=== PATIENT | female | born 1955 | race Caucasian/White ===

== ENCOUNTER 2024-01-08 08:45 | Outpatient (OUT) | payer BC, SELFPAY ==
--- NOTE | 2024-01-08 09:04 | MM_ITS ---
Patient Name: JOSTIN PEREA MR#: [id number] : 1955 Exam Date: 01/08/2024 Ordering Doctor: DR Breonna Steiner M.D. RADIOLOGY REPORT PROCEDURE: MM TOMOSYNTHESIS SCREENING BI COMPARISON: MG MAMM SCREEN 3D STACIA CAD, 06/15/2021. MG MAMM SCREEN 3D STACIA CAD, 09/13/2022. INDICATIONS: Screening Calculator Name NCI Breast Cancer Risk Assessment Tool 5 Year Breast Cancer Risk 2.10% Lifetime Breast Cancer Risk 6.90% Personal Breast Cancer No Personal Ovarian Cancer No Treatments None Family Cancers Father with bladder cancer at age 48. LOCATION: [facility] BREAST COMPOSITION: There are scattered areas of fibroglandular density. FINDINGS: DIAGNOSTIC CATEGORY 2--BENIGN FINDING. NO CHANGE FROM COMPARISON. Scattered benign-appearing calcifications are present. Scattered benign-appearing lymph nodes are present. RIGHT BREAST: No significant suspicious finding. LEFT BREAST: No significant suspicious finding. RECOMMENDATIONS: ROUTINE MAMMOGRAM AND CLINICAL EVALUATION IN 12 MONTHS. PLEASE NOTE: A NORMAL MAMMOGRAM DOES NOT EXCLUDE THE POSSIBILITY OF BREAST CANCER. A CLINICALLY SUSPICIOUS PALPABLE LUMP SHOULD BE BIOPSIED. Dictated by: Kartik Pace MD on 01/08/2024 at 13:05 Approved by: Kartik Paec MD on 01/08/2024 at 13:06
[2024-01-08 09:07] LABS: Basophils Percent Auto 0.6 % (0.2-2.0); Eosinophils Absolute Auto 0.3 10^3/uL (0.0-0.7); Eosinophils Percent Auto 4.9 % (0.9-7.0); Hematocrit 42.9 % (36.0-48.0); Hemoglobin 13.7 g/dL (12.0-16.0); Immature Granulocytes Abs Auto 0.01 10^3/uL (0.00-0.03); Immature Granulocytes Pct Auto 0.1 % (0.0-0.5); Lymphocytes Absolute Auto 1.8 10^3/uL (1.2-3.8); Lymphocytes Percent Auto 26.6 % (20.5-60.0); Mean Corpuscular HGB Conc 31.9 g/dL (29.9-35.2); Mean Corpuscular Hemoglobin 29.2 pg (26.7-34.0); Mean Corpuscular Volume 91.5 fL (81.0-99.0); Mean Platelet Volume 9.9 fL (9.5-13.5); Monocytes Absolute Auto 0.6 10^3/uL (0.3-0.8); Monocytes Percent Auto 8.7 % (1.7-12.0); Neutrophils Percent Auto 59.1 % (43.0-75.0); Platelet Count 275 10^3/uL (150-450); Red Blood Count 4.69 10^6/uL (4.20-5.40); Red Cell Distribution Width 13.3 % (11.0-15.0); White Blood Count 6.8 10^3/uL (4.0-11.0)
[2024-01-08 09:26] LABS: Alanine Aminotransferase 34 U/L (14-59); Albumin Globulin Ratio 0.9; Albumin Level 3.3 g/dL (3.4-5.0); Alkaline Phosphatase 65 U/L (46-116); Anion Gap 6.3; Aspartate Amino Transferase 22 U/L (15-37); BUN Creatinine Ratio 23.5; Bilirubin Total 0.5 mg/dL (0.2-1.0); Calcium 9.2 mg/dL (8.5-10.1); Carbon Dioxide 33.6 mmol/L (21.0-32.0); Chloride 103 mmol/L (98-107); Chol HDL Ratio 3.3; Cholesterol 183 mg/dL (<=200); Estimated GFR (African America >60 (>=60); Estimated GFR (Non-African Ame >60 (>=60); Globulin 3.7 g/dL; Glucose 102 mg/dL (74-106); HDL Cholesterol 55 mg/dL (40-60); LDL Cholesterol Calculated 116.8 mg/dL; Potassium 3.9 mmol/L (3.5-5.1); Sodium 139 mmol/L (136-145); Triglycerides 56 mg/dL (<=150); VLDL CHOLESTEROL 11.2 mg/dL
== END 2024-01-08 08:46 | disposition home or self-care (01) ==
LOC: MAMMO 08:46
PROVIDERS: PCP Family Medicine; Visit Provider Family Medicine
DX: Z00.00 Encounter for general adult medical examination without abnormal findings (principal); Z12.31 Encounter for screening mammogram for malignant neoplasm of breast; I10 Essential (primary) hypertension; Z80.52 Family history of malignant neoplasm of bladder
CPT/HCPCS: 36415; 77063; 77067; 80053; 80061; 85025

== ENCOUNTER 2025-01-21 08:42 | Outpatient (OUT) | payer BC, SELFPAY ==
--- OUTSIDE RECORDS SUMMARY | 2025-01-21 08:48 | XMS_ITS | CCD ---
Author Organization [facility] CliniSyms Care Team Providers Care Wood Shingle Roofer Name Role Phone DR BREONNA STEINER Admitting Unavailable OBDULIA, DR BREONNA Calixto Attending Unavailable OBDULIA, DR BREONNA Calixto Primary Care Unavailable WEST, DR LOLLY Crabtree Consulting Unavailable OBDULIA, DR BREONNA Calixto Consulting Unavailable OBDULIA, DR BREONNA Calixto Admitting Unavailable OBDULIA, DR BREONNA Calixto Attending Unavailable OBDULIA, DR BREONNA Calixto Primary Care Unavailable OBDULIA, DR BREONNA Calixto Consulting Unavailable Breonna Steiner Unavailable Allergies Allergy Classification Reported Allergen(s) Allergy Type Date of Onset Reaction(s) Facility (3 sources) Nitric Oxide Drug Allergy Unknown [facility] Other (2 sources) patient allergy list reviewed by nurse or physicia Propensity to adverse reactions 9 Comment:Done [facility] Other (2 sources) Allergies Reconciled Propensity to adverse reactions Unknown [facility] Other (2 sources) JALAPENOS Propensity to adverse reactions 6 Unknown [facility] Other Medications Current Medications Medication Drug Class(es) Dates Sig (Normalized) Sig (Original) [id number] 200 actuat albuterol 0.09 mg/actuat metered dose inhaler (2 sources) beta2-Adrenergic Agonist Start: 12-10-2024 take 2 puff(s) by inhalation every four hours as needed Albuterol Sulfate 90 mcg/actuation HFA aerosol inhaler Active 2 PUFF INHALATION Every 4 hours December 10, 2024 12:00am [facility] puff Inhalation every 4 hrs prn; Note: Source Status: Start; Refills: 1; Qty: 1 Each; Provider: Obdulia Calixto Start: 08-28-2023 take 2 puff(s) by in halation every four hours as needed Albuterol Sulfate HFA 108 (90 Base) MCG/ACT 2 puff Inhalation every 4 hrs prn Aug, Active amoxicillin 875 mg / clavulanate 125 mg oral tablet (1 source) Penicillin-class Antibacterial Start: 08-28-2023 take 1 tablet by mouth every twelve hours Amoxicillin-Pot Clavulanate 875-125 MG 1 tablet Orally every 12 hrs for 10 day(s) Aug, Active breath-actuated 120 actuat beclomethasone dipropionate 0.04 mg/actuat metered dose inhaler (2 sources) Corticosteroid Start: 09-25-2024 take 40 ug by inhalation twice daily Beclomethasone Dipropionate (Qvar Redihaler) 40 mcg/actuation HFA aerosol breath activated Active 1 INH INHALATION Twice daily 31.8 September 25, 2024 1:00am take 1 puff(s) by inhalation twi ce daily Qvar RediHaler 40 MCG/ACT 1 puff Inhalation Twice a day for 90 days Active fexofenadine hydrochloride 180 mg oral tablet (1 source) Histamine-1 Receptor Antagonist Start: 12-11-2024 take 1 tablet by mouth once daily Fexofenadine (Ny Allergy) 180 mg tablet Active 180 MG PO Daily December 11, 2024 12:00am hydroCHLOROthiazide 12.5 mg / lisinopril 20 mg oral tablet (6 sources) Thiazide Diuretic, Angiotensin Converting Enzyme Inhibitor Start: 12-16-2023 End: 05-18-2024 take 1 tablet by mouth once daily Lisinopril-Hydroc hlorothiazide 20-12.5 mg tablet Active 0 .ROUTE .COMPLEX May 18, 2024 9:05am TAKE 1 TABLET BY MOUTH EVERY DAY Start: 12-16-2023 End: 12-16-2023 take 1 tablet by mouth once daily Lisinopril-Hydrochlorothiazide 20-12.5 m g tablet Discontinued 1 TAB PO Daily December 16, 2023 12:00am December 16, 2023 3:02pm take 1 tablet by jayden th once daily Lisinopril-hydroCHLOROthiazide 20-12.5 M G TAKE 1 TABLET BY MOUTH EVERY DAY for 90 Active take 1 tablet by jayden th once daily Lisinopril-hydroCHLOROthiazide 20-12.5 M G TAKE 1 TABLET BY MOUTH EVERY DAY for 90 Active simvastatin 40 mg oral tablet (5 sources) HMG-CoA Reductase Inhibitor Start: 05-18-2024 take 1 tablet by mouth once daily Simvastatin 40 mg tablet Active 0 .ROUTE .COMPLEX May 18, 2024 9:05am TAKE 1 TABLET BY MOUTH EVERY DAY Start: 05-18-2024 End: 05-18-2024 take 1 tablet by mouth once daily Simvastatin 40 mg tablet Discontinued 40 MG PO Daily May 18, 2024 12:00am May 18, 2024 9:05am take 1 tablet by jayden th once daily Simvastatin 40 MG TAKE 1 TABLET BY MOUTH EVERY DAY for 90 Active Completed/Discontinued Medications Medication Drug Class(es) Dates Sig (Normalized) Sig (Original) cetirizine hydrochloride 10 mg oral tablet (8 sources) Histamine-1 Receptor Antagonist Start: 12-10-2024 End: 12-11-2024 take 1 tablet by mouth once daily Cetirizine (Zyrtec) 10 mg tablet Discontinued 10 MG PO Daily December 10, 2024 12:00am December 11, 2024 2:35pm [facility] tablet Orally Once a day; Note: Source Status: Takinggeneric please; Refills: 3; Provider: Obdulia Calixto Start: 04-03-2024 End: 04-09-2024 take 1 tablet by mouth once daily Cetirizine 10 mg tablet Discontinued 10 MG PO Daily April 06, 2024 8:41am April 09, 2024 9:45am Start: 02-22-2023 take 1 tablet by jayden th every twenty-four hours ZyrTEC Allergy 10 MG 1 tablet Orally Once a day for 30 days generic please Feb, Active loratadine 10 mg oral tablet (3 sources) Start: 04-10-2024 End: 12-11-2024 take 1 tablet by mouth once daily Loratadine 10 mg tablet Discontinued 0 .ROUTE .COMPLEX April 10, 2024 10:08pm December 11, 2024 2:35pm TAKE 1 TABLET BY MOUTH EVERY DAY Start: 04-09-2024 End: 04-10-2024 take 1 tablet by mouth once daily Loratadine 10 mg tablet Discontinued 10 MG PO Daily April 09, 2024 9:45am April 10, 2024 10:08pm Problems Active Problems Problem Classification Problem Date Documented Date Episodic/Chronic Asthma (4 sources) Uncomplicated asthma; Translations: [Unspecified asthma, uncomplicated] Onset: 09-01-2015 Chronic Disorders of lipid metabolism (10 sources) Hyperlipidemia; Translations: [Hyperlipidemia, unspecified] 12-11-2024 Chronic Essential hypertension (6 sources) Essential hypertension; Translations: [Essential (primary) hypertension] Onset: 09-01-2015 12-31-2023 Chronic Immunizations and screening for infectious disease (2 sources) Vaccination given; Translations: [Encounter for immunization] Episodic Miscellaneous mental health disorders (2 sources) Insomnia disorder related to another mental disorder; Translations: [Insomnia due to other mental disorder] Onset: 12-07-2016 Chronic Mood disorders (7 sources) Major depressive disorder; Translations: [Major depressive disorder, single episode, unspecified] Onset: 12-07-2016 Chronic Other lower respiratory disease (1 source) Snoring Episodic Other nutritional; endocrine; and metabolic disorders (2 sources) Obese class I; Translations: [Body mass index 34.0-34.9, adult] Onset: 12-07-2016 Chronic Other nutritional; endocrine; and metabolic disorders (2 sources) Simple obesity ; Translations: [Other obesity due to excess calories] Onset: 12-07-2016 Chronic Other screening for suspected conditions (not mental disorders or infectious disease) (6 sources) Encounter for screening mammogram for malignant neoplasm of breast; Translations: [Patient encounter status] Onset: 09-13-2022 Episodic Other upper respiratory disease (3 sources) Allergic rhinitis due to pollen; Translations: [Allergic rhinitis due to pollen] Chronic Other upper respiratory disease (1 source) Allergic rhinitis due to pollen Chronic Other upper respiratory disease (2 sources) Allergic rhinitis; Translations: [Allergic rhinitis, unspecified] Onset: 09-01-2015 Chronic Other upper respiratory infections (1 source) Acute recurrent maxillary sinusitis Episodic Residual codes; unclassified (5 sources) Insomnia; Translations: [Insomnia, unspecified] Episodic Residual codes; unclassified (2 sources) Postmenopausal state; Translations: [Asymptomatic menopausal state] Episodic Past or Other Problems Problem Classification Problem Date Documented Da te Episodic/Chronic Acute bronchitis (2 sources) Acute bronchitis; Translations: [Acute bronchitis] Onset: 08-28-2017 Episodic Conditions associated with dizziness or vertigo (2 sources) Benign paroxysmal positional vertigo; Translations: [Benign paroxysmal positional vertigo] Onset: 01-16-2019 Episodic Other connective tissue disease (2 sources) Plantar fascial fibromatosis; Translations: [Plantar fascial fibromatosis] Onset: 12-07-2016 Episodic Residual codes; unclassified (1 source) Family history of malignant neoplasm of bladder; Translations: [FAM HX MALIGNANT NEOPLASM BLADDER] Onset: 09-19-2022 Episodic Superficial injury; contusion (2 sources) Contusion of lower leg; Translations: [Contusion of left lower leg, initial encounter] Onset: 12-07-2016 Episodic Results Test Name Value Interpretation Reference Range Facil ity CBC AUTO DIFFon 12-24-2022 BASO # 0.1 103/ul Normal 0.0-0.1 [facility] Comment on above: Performed By: #### C BC #### [facility] [place] [facility] [address] [place] [address] Dr. Angela Ford Basophils/100 WBC (Bld) 0.6 % Normal 0.2-2.0 [facility] Comment on above: Performed By: #### C BC #### [facility] [place] [facility] [address] [address] [address] Angela Ford EO # 0.2 103/ul Normal 0.0-0.7 [facility] Comment on above: Performed By: #### C BC #### [facility] [place] [facility] [address] [place] [address] Dr. Angela Ford Eosinophils/100 WBC (Bld) 2.9 % Normal 0.9-7.0 [facility] Comment on above: Performed By: #### C BC #### [facility] [place] [facility] [address] [address] [address] Angela Ford Erythrocyte distribution width (RBC) [Ratio] 12.7 % Normal 11.0-15.0 [facility] [place] [facility] Comment on above: Performed By: #### C BC #### [facility] [place] [facility] [address] [place] [address] Dr. Angela Ford Hematocrit (Bld) [Volume fraction] 41.0 % Normal 36.0-48.0 [facility] Comment on above: Performed By: #### C BC #### [facility] [place] [facility] [address] [place] [address] Dr. Angela Ford Hemoglobin (Bld) [Mass/Vol] 13.1 g/dL Normal 12.0-16.0 [facility] Comment on above: Performed By: #### C BC #### [facility] [place] [facility] [address] [place] [address] Dr. Angela Ford IG # 0.02 10e3/ul Normal 0.00-0.03 [facility] Comment on above: Performed By: #### C BC #### [facility] [place] [facility] [address] [place] [address] Dr. Angela Ford IG % 0.2 % Normal 0.0-0.5 [facility] Comment on above: Performed By: #### C BC #### [facility] [place] [facility] [address] [place] [address] Dr. Angela Ford LYMPH # 2.1 103/ul Normal 1.2-3.8 [facility] Comment on above: Performed By: #### C BC #### [facility] [place] [facility] [address] [place] [address] Dr. Angela Ford Lymphocytes/100 WBC (Bld) 25.3 % Normal 20.5-60.0 [facility] Comment on above: Performed By: #### C BC #### [facility] [place] [facility] [address] [place] [address] Dr. Angela Ford MANUAL DIFF REQ NO Normal [facility] Comment on above: Performed By: #### C BC #### [facility] [place] [facility] [address] [place] [address] Dr. Angela Ford MCH (RBC) [Entitic mass] 29.1 pg Normal 26.7-34.0 [facility] Comment on above: Performed By: #### C BC #### [facility] [place] [facility] [address] [place] [address] Dr. Angela Ford MCHC (RBC) [Mass/Vol] 32.0 g/dL Normal 29.9-35.2 [facility] Comment on above: Performed By: #### C BC #### [facility] [place] [facility] [address] [place] [address] Dr. Angela Ford MCV (RBC) [Entitic vol] 91.1 fL Normal 81.0-99.0 [facility] Comment on above: Performed By: #### C BC #### [facility] [place] [facility] [address] [place] [address] Dr. Angela Ford MONO # 0.7 103/ul Normal 0.3-0.8 [facility] Comment on above: Performed By: #### C BC #### [facility] [place] [facility] [address] [place] [address] Dr. Angela Ford Monocytes/100 WBC (Bld) 8.0 % Normal 1.7-12.0 [facility] Comment on above: Performed By: #### C BC #### [facility] [place] [facility] [address] [place] [address] Dr. Angela Ford NEUT # 5.2 103/ul Normal 1.4-6.5 [facility] Comment on above: Performed By: #### C BC #### [facility] [place] [facility] [address] [place] [address] Dr. Angela Ford Neutrophils/100 WBC (Bld) 63.0 % Normal 43.0-75.0 [facility] Comment on above: Performed By: #### C BC #### [facility] [place] [facility] [address] [place] [address] Dr. Angela Ford Platelet mean volume (Bld) [Entitic vol] 9.6 fL Normal 9.5-13.5 [facility] Comment on above: Performed By: #### C BC #### [facility] [place] [facility] [address] [place] [address] Dr. Angela Ford PLT 282 103/ul Normal 150-450 [facility] [place] [facility] Comment on above: Performed By: #### C BC #### [facility] [place] [facility] [address] [place] [address] Dr. Angela Ford RBC 4.50 106/ul Normal 4.20-5.40 [facility] [place] [facility] Comment on above: Performed By: #### C BC #### [facility] [place] [facility] [address] [place] [address] Dr. Angela Ford WBC 8.3 103/ul Normal 4.0-11.0 [facility] Comment on above: Performed By: #### C BC #### [facility] [place] [facility] [address] [place] [address] Dr. Angela Ford GLYCOHEMOGLOBIN A1Con 2022 ADA RECOMMENDATION SEE BELOW Normal [facility] Comment on above: Result Comment: ADA RECOMMENDED LIMIT 4.0 - 6.0 ADA THERAPEUTIC TARGET < 7.0 ACTION SUGGESTED > 7.0 Performed By: #### A 1C #### [facility] [place] [facility] [address] [place] [address] Dr. Angela Ford Glucose [Mass/Vol] 114 mg/dL Normal [facility] Comment on above: Performed By: #### A 1C #### [facility] [place] [facility] [address] [place] [address] Dr. Angela Ford HbA1c (Bld) [Mass fraction] 5.6 % Normal 4.5-6.2 [facility] Comment on above: Performed By: #### A 1C #### [facility] [place] [facility] [address] [place] [address] Dr. Angela Ford LIPID PROFILEon 12-24-2022 CHOL-HDL RATIO NORM SEE BELOW Normal [facility] [place] [facility] Comment on above: Result Comment: 3.3 - 4.4 LOW RISK 4.4 - 7.1 AVERAGE RISK 7.1 - 11.0 MODERATE RISK >11.0 HIGH RISK Performed By: #### C MP, LIPID, TSH #### [facility] [place] [facility] [address] [place] [address] Dr. Angela Ford Cholesterol [Mass/Vol] 171 mg/dL Normal <=200 [facility] Comment on above: Performed By: #### C MP, LIPID, TSH #### [facility] [place] [facility] [address] [place] [address] Dr. Angela Ford Cholesterol in HDL [Mass/Vol] 56 mg/dL Normal 40-60 [facility] Comment on above: Performed By: #### C MP, LIPID, TSH #### [facility] [place] [facility] [address] [place] [address] Dr. Angela Ford Cholesterol in LDL [Mass/Vol] 99.4 mg/dL Normal [facility] Comment on above: Performed By: #### C MP, LIPID, TSH #### [facility] [place] [facility] [address] [address] [address] Angela Ford Cholesterol.total/Cho lesterol in HDL [Mass ratio] 3.1 {ratio} Normal [facility] Comment on above: Performed By: #### C MP, LIPID, TSH #### [facility] [place] [facility] [address] [address] [address] Angela Ford HDL NORMAL > or = 60 mg/dl - LOW CARDIOVASCULAR RISK <40 mg/dl - HIGH CARDIOVASCULAR RISK Normal [facility] Comment on above: Performed By: #### C MP, LIPID, TSH #### [facility] [place] [facility] [address] [address] [address] Angela Ford LDL CALC NORMAL SEE BELOW Normal [facility] Comment on above: Result Comment: <100 mg/dl OPTIMAL 100 - 129 mg/dl NEAR OR ABOVE OPTIMAL 130 - 159 mg/dl BORDERLINE HIGH 160 - 189 mg/dl HIGH >190 mg/dl VERY HIGH Performed By: #### C MP, LIPID, TSH #### [facility] [place] [facility] [address] [place] [address] Dr. Angela Ford Triglyceride [Mass/Vol] 78 mg/dL Normal <=150 [facility] Comment on above: Performed By: #### C MP, LIPID, TSH #### [facility] [place] [facility] [address] [place] [address] Dr. Angela Ford VLDL CALC 15.6 mg/dL Normal [facility] Comment on above: Performed By: #### C MP, LIPID, TSH #### [facility] [place] [facility] [address] [address] [address] Angela Ford PROF 14(COMP METB)on 023 Albumin [Mass/Vol] 3.6 g/dL Normal 3.4-5.0 [facility] Comment on above: Performed By: #### C MP, LIPID, TSH #### [facility] [place] [facility] [address] [place] [address] Dr. Angela Ford Albumin/Globulin [Mass ratio] 0.9 {ratio} Normal [facility] Comment on above: Performed By: #### C MP, LIPID, TSH #### [facility] [place] [facility] [address] [address] [address] Angela Ford ALP [Catalytic activity/Vol] 65 U/L Normal 46-116 [facility] Comment on above: Performed By: #### C MP, LIPID, TSH #### [facility] [place] [facility] [address] [address] [address] Angela Ford ALT [Catalytic activity/Vol] 34 U/L Normal 14-59 [facility] Comment on above: Performed By: #### C MP, LIPID, TSH #### [facility] [place] [facility] [address] [address] [address] Angela Ford Anion gap [Moles/Vol] 11.3 mmol/L Normal [facility] Comment on above: Performed By: #### C MP, LIPID, TSH #### [facility] [place] [facility] [address] [address] [address] Angela Ford AST [Catalytic activity/Vol] 25 U/L Normal 15-37 [facility] Comment on above: Performed By: #### C MP, LIPID, TSH #### [facility] [place] [facility] [address] [address] [address] Angela Ford Bilirubin [Mass/Vol] 0.5 mg/dL Normal 0.2-1.0 [facility] Comment on above: Performed By: #### C MP, LIPID, TSH #### [facility] [place] [facility] [address] [address] [address] Angela Ford Calcium [Mass/Vol] 9.5 mg/dL Normal 8.5-10.1 [facility] Comment on above: Performed By: #### C MP, LIPID, TSH #### [facility] [place] [facility] [address] [address] [address] Angela Ford Chloride [Moles/Vol] 103 mmol/L Normal 98-107 [facility] Comment on above: Performed By: #### C MP, LIPID, TSH #### [facility] [place] [facility] [address] [address] [address] Angela Ford CO2 [Moles/Vol] 31.7 mmol/L Normal 21.0-32.0 [facility] Comment on above: Performed By: #### C MP, LIPID, TSH #### [facility] [place] [facility] [address] [address] [address] Angela Ford Creatinine [Mass/Vol] 0.80 mg/dL Normal 0.55-1.02 [facility] Comment on above: Performed By: #### C MP, LIPID, TSH #### [facility] [place] [facility] [address] [address] [address] Angela Ford EGFR-AF SOUTH [place]OREAN >60 Normal >=60 [facility] Comment on above: Performed By: #### C MP, LIPID, TSH #### [facility] [place] [facility] [address] [address] [address] Angela Ford EGFR-NON AF [place]OREAN >60 Normal >=60 [facility] Comment on above: Performed By: #### C MP, LIPID, TSH #### [facility] [place] [facility] [address] [address] [address] Angela Ford Globulin (S) [Mass/Vol] 3.8 g/dL Normal [facility] Comment on above: Performed By: #### C MP, LIPID, TSH #### [facility] [place] [facility] [address] [address] [address] Angela Ford Glucose [Mass/Vol] 84 mg/dL Normal 74-106 [facility] Comment on above: Performed By: #### C MP, LIPID, TSH #### [facility] [place] [facility] [address] [address] [address] Angela Ford Potassium [Moles/Vol] 4.0 mmol/L Normal 3.5-5.1 [facility] Comment on above: Performed By: #### C MP, LIPID, TSH #### [facility] [place] [facility] [address] [address] [address] Angela Ford Protein [Mass/Vol] 7.4 g/dL Normal 6.4-8.2 [facility] Comment on above: Performed By: #### C MP, LIPID, TSH #### [facility] [place] [facility] [address] [address] [address] Angela Ford Sodium [Moles/Vol] 142 mmol/L Normal 136-145 [facility] Comment on above: Performed By: #### C MP, LIPID, TSH #### [facility] [place] [facility] [address] [place], [place] [address] Dr. Angela Ford Urea nitrogen [Mass/Vol] 13.0 mg/dL Normal 7.0-18.0 [facility] Comment on above: Performed By: #### C MP, LIPID, TSH #### [facility] [place] [facility] [address] [place], [place] [address] Dr. Angela Ford Urea nitrogen/Creatinine [Mass ratio] 16.2 mg/mg Normal [facility] Comment on above: Performed By: #### C MP, LIPID, TSH #### [facility] [place] [facility] [address] [place], [place] [address] Dr. Angela Ford TSHon 12-24-2022 TSH 1.269 uIU/mL Normal 0.358-3.740 [facility] Comment on above: Performed By: #### C MP, LIPID, TSH #### [facility] [place] [facility] [id number] Angela Ford MG MAMM SCREEN 3D STACIA CADon 09-13-2022 MG MAMM SCREEN 3D STACIA CAD Patient: ANITHA PEREA Exam Date: 09/13/2022 : 1955 Gender:F Ordering : DR BREONNA STEINER M.D. Admission #: [id number] Family : Order #: [id number] CLICK HERE TO VIEW EXAM RADIOLOGY REPORT PROCEDURE: MAMMOGRAM SCREENING 3D BILATERAL CAD COMPARISON: MG MAMM SCREEN STACIA W CAD, 06/10/2020. MG MAMM SCREEN 3D STACIA CAD, 06/15/2021. INDICATIONS: Calculator Name NCI Breast Cancer Risk Assessment Tool 5 Year Breast Cancer Risk 2.10% Lifetime Breast Cancer Risk 7.20% Personal Breast Cancer No Personal Ovarian Cancer No Treatments None Family Cancers Father with bladder cancer at age 48. LOCATION: [facility] [place] [facility] BREAST COMPOSITION: Scattered areas fibroglandular density. FINDINGS: DIAGNOSTIC CATEGORY 1--NEGATIVE. NO CHANGE FROM COMPARISON ASSESSMENT. Scattered benign-appearing lymph nodes are present. Scattered benign-appearing calcifications are present. RIGHT BREAST: No significant suspicious finding. LEFT BREAST: No significant suspicious finding. RECOMMENDATIONS: ROUTINE MAMMOGRAM AND CLINICAL EVALUATION IN 12 MONTHS. PLEASE NOTE: A NORMAL MAMMOGRAM DOES NOT EXCLUDE THE POSSIBILITY OF BREAST CANCER. A CLINICALLY SUSPICIOUS PALPABLE LUMP SHOULD BE BIOPSIED. Dictated by: Lolly Pace MD on 09/13/2022 at 14:04 Approved by: Lolly Pcae MD on 09/13/2022 at 14:11 Normal [facility] Vital Signs Date Time Vital Sign Value Performing Clinician Facility 12-11-2024 14:14-0400 Body height 172.72 cm [facility] 12-11-2024 14:14-0400 Body mass index (BMI) [Ratio] 34.4 kg/m2 [facility] 12-11-2024 14:140400 Body weight 102.73 kg [facility] 12-11-2024 14:14-0400 Diastolic blood pressure 70 mm[Hg] [facility] 12-11-2024 14:14-0400 Heart rate 90 /min [facility] 12-11-2024 14:14-0400 Systolic blood pressure 138 mm[Hg] [facility] 08-28-2023 09:00-0500 Body height 172.72 cm Breonna Steiner Other [facility] Other 08-28-2023 09:00-0500 Body mass index (BMI) [Ratio] 33.51 kg/m2 Breonna Steiner Other [facility] Other 08-28-2023 09:00-0500 Body temperature 97.3 [degF] Breonna Steiner Other [facility] Other 08-28-2023 09:00-0500 Body weight 99.97 kg Breonna Steiner Other [facility] Other 08-28-2023 09:00-0500 Diastolic blood pressure 79 mm[Hg] Breonna Steiner Other [facility] Other 08-28-2023 09:00-0500 Systolic blood pressure 122 mm[Hg] Breonna Steiner Other [facility] Other 02-21-2023 13:45-0400 Body height 172.72 cm Breonna Steiner Other [facility] Other 02-21-2023 13:45-0400 Body mass index (BMI) [Ratio] 33.75 kg/m2 Breonna Steiner Other [facility] Other 02-21-2023 13:45-0400 Body weight 100.7 kg Breonna Steiner Other [facility] Other 02-21-2023 13:45-0400 Diastolic blood pressure 82 mm[Hg] Breonna Steiner Other [facility] Other 02-21-2023 13:45-0400 Systolic blood pressure 146 mm[Hg] Breonna Steiner Other [facility] Other Encounters Encounter Date Encounter Type Care Provider Facility Start: 12-11-2024 End: 12-11-2024 ambulatory [facility] Work Phone: Start: 12-11-2024 End: 12-11-2024 Patient encounter procedure [facility] Work Phone: Start: 12-31-2023 Patient encounter status [facility] Start: 08-28-2023 End: 08-28-2023 ambulatory Breonna Steiner Other [facility] Other Start: 08-28-2023 Office outpatient vi sit [address] [facility] Start: 06-03-2023 End: 06-03-2023 ambulatory Breonna Steiner Other [facility] Other Start: 06-03-2023 Telephone encounter Breonna Steiner [facility] Start: 02-21-2023 End: 02-21-2023 ambulatory Breonna Steiner Other [email or web address] [email or web address] Other Start: 02-21-2023 Encounter for genera l adult medical examination without abnormal findings Breonna Obdulia [facility] Start: 02-21-2023 Periodic preventive med est patient 65yrs& older Breonna Steiner [facility] Start: 12-24-2022 End: 12-25-[address] BREONNA STEINER Facility:[facility] Start: 09-13-2022 End: 09-14-[address] BREONNA STEINER Facility:[facility] Start: 11-01-2021 Adult health examination Breonna Steiner Other [facility] [email or web address] Other Procedures Date Procedure Procedure Detail Performing Clinician Start: 09-01-2015 General examination of patient Breonna Steiner Other Start: 09-01-2015 Screening mammography Raiza Steiner Other Screening for malign ant neoplasm of breast Breonna Obdulia Other Plan of Treatment Date Care Activity Detail Author Comprehensive metabo lic 2000 panel - Serum or Plasma [facility] Immunizations Immunization Date Immunization Notes Care Provider Fa cility 05-16-2022 COVID-19 Vaccine Moderna - Documentation Purposes Only Breonna Steiner Other [facility] 05-16-2022 influenza virus vaccine, split virus (incl. purified surface antigen) Breonna Steiner Other [facility] [email or web address] Other 05-16-2022 influenza virus vaccine, unspecified formulation [facility] 06-15-2021 COVID-19 Vaccine Moderna - Documentation Purposes Only Breonna Obdulia Other [facility] 05-08-2021 influenza virus vaccine, split virus (incl. purified surface antigen) Breonna Steiner Other [facility] [email or web address] Other 05-08-2021 influenza virus vaccine, unspecified formulation [facility] 10-26-2020 COVID-19 Vaccine Moderna - Documentation Purposes Only Breonna Steiner Other [facility] 09-28-2020 COVID-19 Vaccine Moderna - Documentation Purposes Only Breonna Steiner Other [facility] 05-30-2020 pneumococcal polysaccharide vaccine, 23 valent Breonna Steiner Other [facility] 05-09-2020 influenza virus vaccine, split virus (incl. purified surface antigen) Breonna Steiner Other [email or web address] [email or web address] Other 05-09-2020 influenza virus vaccine, unspecified formulation [facility] 05-19-2019 pneumococcal conjuga te vaccine, 13 valent Breonna Steiner Other [facility] Payers Date Payer Category Payer Unknown [id number] 1955 Unknown [id number] 1955 Unknown [id number] Social History Date Type Detail Facility Unknown if ever smoked [facility] Other Sex Assigned At Sex Assigned At Bir th [facility] Other Tobacco smoking status NHIS Unknown if ever smoked [facility] Work Phone: Start: 12-11-2024 Sex Female (finding) [facility] Start: 1955 Sex Assigned At Female F [facility] Evaluation note 08-28-2023 Note Date & Type Note Facility 08-28-2023 Evaluation note Encounter Date Diagnosis Assessment Notes Aug, Acute recurrent maxillary sinusitis (ICD-10 - J01.01) Sinus infections can be triggered by a secondary infection from a viral URI or even seasonal allergies. Take medications as directed. Use saline nasal spray prior to presciption nasal spray. Take medications as directed, and complete all doses of medication even if you start to feel better. Patient advised to follow up with PCP if symptoms persist or worsen. Patient verbalized understanding and agreement with treatment plan. Aug, Mild intermittent asthma with acute exacerbation (ICD-10 - J45.21) Take medication as directed and we will continue to monitor. [facility] Other Evaluation note 02-21-2023 Note Date & Type Note Facility 02-21-2023 Evaluation note Encounter Date Diagnosis Assessment Notes Feb, Well adult exam (ICD-10 - Z00.00) We have discussed the necessity of following up with PCP regularly as well as specialists, as needed. Discussed F/U with dentistry and optometry at least yearly. Discussed all preventative measures/ cancer screenings as applicable to this patient. Emphasized the importance of a reduced fat, low carb diet to promote heart health and controlled blood sugars. Reviewed social history and ensured patient is safe within the home today. Pt denies any abuse of alcohol, nicotine, caffeine or recreational drugs. I have ensured patient is of stable mental and physical health today. We have discussed appropriate F/U schedule as well as blood work and vaccinations that apply. All questions answered and patient is sent home pleased, without concerns. Feb, Snorings (ICD-10 - R06.83) order completed for HST at [place]. Feb, Seasonal allergic rhinitis due to pollen (ICD-10 - J30.1) Pt states zyrtec works well and requests a rx to see if insurance covers. [facility] Other Evaluation note Note Date & Type Note Facility Evaluation note No Information [employer] Other Evaluation note Note Date & Type Note Facility Evaluation note Diagnosis Onset Date Resolution Colon cancer screening acute Ma y 2024 1:56pm Hyperlipemia acute December 11 1:56pm [facility] Work Phone: History general Narrative - Reported Note Date & Type Note Facility History general Narrative - Reported Type Medical History Essential (primary) hypertension Medical History Pure hypercholesterolemia Medical History Insomnia Medical History Major depression Medical History Hyperlipemia [facility] Other History general Narrative - Reported Note Date & Type Note Facility History general Narrative - Reported Type Medical History Essential (primary) hypertension Medical History Pure hypercholesterolemia Medical History Insomnia Medical History Major depression Medical History Hyperlipemia Surgical History Problem Title : Non- Contributory Past Surgical History, Problem Status : Active, Surgical History Problem Title : past surgical history reviewed, Problem Description : past surgical history reviewed, Problem Comment : reviewed - no changes required, Problem Status : Resolved, [facility] Other Summary Purpose Family History Relationship Condition Age at Onset Recorded Date/T bladimir father Unknown Malignant neoplasm Unknown mother Unknown Heart disease Unknown Advance Directives Advance Directive Response Recorded Date/ Time Advance Directives No December 11, 2024 1:54pm Chief Complaint and Reason for Visit Chief Complaint Admit Date Wellness visit December 11, 2024 1:56pm Reason for Visit Admit Date Colon cancer screening December 11, 2024 1:5 6pm Hyperlipemia December 11, 2024 1:56pm Additional Source Comments INFORMATION SOURCE (unrecogn ized section and content) DATE CREATED AUTHOR 12/25/2022 [employer] [facility] REASON FOR VISIT (unrecogniz ed section and content) check uperrorcough x 2 weeks Care Teams (unrecognized sec tion and content) Team Status: Active Member Role Status Dates Breonna Steiner MD Primary Care Provider Active Team Status: Inactive Member Role Status Dates Breonna Steiner MD Primary Care Provide r, Attending Provider Active Start: December 11, 2024 End: December 11, 2024 Goals (unrecognized section and content) Goals may be documented in a n alternate section FOR RECORDS PERTAINING TO PATIENTS WHO ARE OR HAVE BEEN ENROLLED IN A CHEMICAL DEPENDENCY/SUBSTANCEABUSE PROGRAM, SOME INFORMATION MAY BE OMITTED. This clinical summary was aggregated from multiple sources. Caution should be exercised in using it in the provision of clinical care. This summary normalizes information from multiple sources, and as a consequence, information in this document may materially change the coding, format and clinical context of patient data. In addition, data may be omitted in some cases. CLINICAL DECISIONS SHOULD BE BASED ON THE PRIMARY CLINICAL RECORDS. [facility]. provides no warranty or guarantee of the accuracy or completeness of information in this document.
--- NOTE | 2025-01-21 08:52 | MM_ITS ---
Patient Name: JOSTIN PEREA MR#: [id number] : 1955 Exam Date: 01/21/2025 Ordering Doctor: DR LIYAH KIM M.D. RADIOLOGY REPORT PROCEDURE: MM TOMOSYNTHESIS SCREENING BI COMPARISON: MM TOMOSYNTHESIS SCREENING BI, 01/08/2024. MG MAMM SCREEN 3D STACIA CAD, 09/13/2022. MG MAMM SCREEN 3D STACIA CAD, 06/15/2021. MG MAMM STACIA SCRN W CAD DIG, 04/25/2013. INDICATIONS: Screening Calculator Name NCI Breast Cancer Risk Assessment Tool 5 Year Breast Cancer Risk 2.20% Lifetime Breast Cancer Risk 6.60% Personal Breast Cancer No Personal Ovarian Cancer No Treatments None Family Cancers Father with bladder cancer at age 48. LOCATION: [facility] BREAST COMPOSITION: There are scattered areas of fibroglandular density. FINDINGS: DIAGNOSTIC CATEGORY 1--NEGATIVE. RIGHT BREAST: No significant suspicious finding. LEFT BREAST: No significant suspicious finding. RECOMMENDATIONS: ROUTINE MAMMOGRAM AND CLINICAL EVALUATION IN 12 MONTHS. PLEASE NOTE: A NORMAL MAMMOGRAM DOES NOT EXCLUDE THE POSSIBILITY OF BREAST CANCER. A CLINICALLY SUSPICIOUS PALPABLE LUMP SHOULD BE BIOPSIED. Dictated by: Rajeev Anderson DO on 01/21/2025 at 15:49 Approved by: Rajeev Anderson DO on 01/21/2025 at 15:50
[2025-01-21 09:22] LABS: Basophils Percent Auto 0.7 % (0.2-2.0); Eosinophils Absolute Auto 0.2 10^3/uL (0.0-0.7); Eosinophils Percent Auto 3.4 % (0.9-7.0); Hemoglobin 12.8 g/dL (12.0-16.0); Immature Granulocytes Abs Auto 0.01 10^3/uL (0.00-0.03); Immature Granulocytes Pct Auto 0.2 % (0.0-0.5); Lymphocytes Absolute Auto 1.5 10^3/uL (1.2-3.8); Lymphocytes Percent Auto 24.5 % (20.5-60.0); Mean Corpuscular HGB Conc 32.8 g/dL (29.9-35.2); Mean Corpuscular Volume 91.5 fL (81.0-99.0); Mean Platelet Volume 9.8 fL (9.5-13.5); Monocytes Absolute Auto 0.7 10^3/uL (0.3-0.8); Monocytes Percent Auto 11.2 % (1.7-12.0); Neutrophils Absolute Auto 3.6 10^3/uL (1.4-6.5); Platelet Count 286 10^3/uL (150-450); Red Blood Count 4.26 10^6/uL (4.20-5.40); Red Cell Distribution Width 12.9 % (11.0-15.0)
[2025-01-21 10:12] LABS: Alanine Aminotransferase 27 U/L (14-59); Albumin Globulin Ratio 0.9; Albumin Level 3.2 g/dL (3.4-5.0); Alkaline Phosphatase 59 U/L (46-116); Anion Gap 7.5; Aspartate Amino Transferase 21 U/L (15-37); BUN Creatinine Ratio 22.8; Bilirubin Total 0.5 mg/dL (0.2-1.0); Calcium 9.3 mg/dL (8.5-10.1); Carbon Dioxide 33.4 mmol/L (21.0-32.0); Chloride 105 mmol/L (98-107); Cholesterol 164 mg/dL (<=200); Estimated GFR (African America >60 (>=60 mL/min/1.73m^2); Estimated GFR (Non-African Ame >60 (>=60 mL/min/1.73m^2); Globulin 3.6 g/dL; Glucose 89 mg/dL (74-106); HDL Cholesterol 54 mg/dL (40-60); LDL Cholesterol Calculated 96.6 mg/dL; Potassium 3.9 mmol/L (3.5-5.1); Sodium 142 mmol/L (136-145); Total Protein 6.8 g/dL (6.4-8.2); Triglycerides 67 mg/dL (<=150); VLDL CHOLESTEROL 13.4 mg/dL
== END 2025-01-21 08:43 | disposition home or self-care (01) ==
LOC: MAMMO 08:42
PROVIDERS: PCP Family Medicine; Visit Provider Family Medicine
DX: Z00.00 Encounter for general adult medical examination without abnormal findings (principal); I10 Essential (primary) hypertension; E78.5 Hyperlipidemia, unspecified; Z12.31 Encounter for screening mammogram for malignant neoplasm of breast; Z80.52 Family history of malignant neoplasm of bladder
CPT/HCPCS: 36415; 77063; 77067; 80053; 80061; 85025

== ENCOUNTER 2025-05-26 10:25 | Outpatient (OUT) | payer BC, SELFPAY ==
--- OUTSIDE RECORDS SUMMARY | 2025-05-26 10:30 | XMS_ITS | CCD ---
Author Organization [facility] Care Team Providers Care Food And Drug Research Scientist Name Role Phone DR BREONNA STEINER Admitting Unavailable STEINER, DR BREONNA Calixto Attending Unavailable STEINER, DR BREONNA Calixto Primary Care Unavailable WEST, DR LOLLY Crbatree Consulting Unavailable JULIO, DR BREONNA Calixto Consulting Unavailable JULIO, DR BREONNA Calixto Admitting Unavailable STEINER, DR BREONNA Calixto Attending Unavailable STEINER, DR BREONNA Calixto Primary Care Unavailable STEINER, DR BREONNA Calixto Consulting Unavailable Breonna Steiner Unavailable Breonna Steiner MD Primary Care Provider [phone] Breonna Steiner MD Attending Provider Jagjit Arceo MD Attending Provider Jagjit Arceo MD Other Provider [phone] Jagjit Arceo Attending Unavailable Jagjit Arceo Admitting Unavailable Breonna Steiner Primary Care Unavailable Allergies Allergy Classification Reported Allergen(s) Allergy Type Date of Onset Reaction(s) Facility (3 sources) Nitric Oxide Drug Allergy Unknown [employer] Other (2 sources) patient allergy list reviewed by nurse or physicia Propensity to adverse reactions 9 Comment:Done [employer] Other (2 sources) Allergies Reconciled Propensity to adverse reactions Unknown [employer]plant Other (2 sources) JALAPENOS Propensity to adverse reactions 6 Unknown [employer]plant Other (1 source) Nitric Oxide Drug Allergy 5 [facility] Repository Medications Current Medications Medication Drug Class(es) Dates Sig (Normalized) Sig (Original) [id number] 200 actuat albuterol 0.09 mg/actuat metered dose inhaler (3 sources) beta2-Adrenergic Agonist Start: 05-01-2025 take 2 puff(s) by inhalation every four hours as needed for wheezing Albuterol Sulfate 90 mcg/actuation HFA aerosol inhaler Active 2 PUFF INHALATION Every 4 hours as needed for shortness of breath or wheezing December 10, 2024 12:00am [employer] puff Inhalation every 4 hrs prn; Note: Source Status: Start; Refills: 1; Qty: 1 Each; Provider: Julio Calixto Complies with drug therapy Start: 08-28-2023 take 2 puff(s) by in [...] beclomethasone dipropionate 0.04 mg/actuat metered dose inhaler (3 sources) Corticosteroid Start: 09-25-2024 take 40 ug by inhalation twice daily Beclomethasone Dipropionate (Qvar Redihaler) 40 mcg/actuation HFA aerosol breath activated Active 1 INH INHALATION Twice daily 31.8 September 25, 2024 1:00am Complies with drug therapy take 1 puff(s) by inhalation twi ce daily Qvar RediHaler 40 MCG/ACT 1 puff Inhalation Twice a day for 90 days Active fexofenadine hydrochloride 180 mg oral tablet (2 sources) Histamine-1 Receptor Antagonist Start: 12-11-2024 take 1 tablet by mouth once daily Fexofenadine (Ny Allergy) 180 mg tablet Active 180 MG PO Daily December 11, 2024 12:00am Complies with drug therapy hydroCHLOROthiazide 12.5 mg / lisinopril 20 mg oral tablet (10 sources) Thiazide Diuretic, Angiotensin Converting Enzyme Inhibitor Start: 12-16-2023 End: 01-25-2025 take 1 tablet by mouth once daily Lisinopril-Hydroc hlorothiazide 20-12.5 mg tablet Active 0 .ROUTE .COMPLEX January 25, 2025 4:36pm TAKE 1 TABLET BY MOUTH EVERY DAY Complies with drug therapy Start: 12-16-2023 End: 12-16-2023 take 1 tablet [...] BY MOUTH EVERY DAY for 90 Active Multivitamin (Daily Value) tablet (1 source) Start: 01-21-2025 take 1 tablet by mouth once daily Multivitamin (Daily Value) tablet Active 1 TAB PO Daily January 21, 2025 12:00am Complies with drug therapy simvastatin 40 mg oral tablet (8 sources) HMG-CoA Reductase Inhibitor Start: 05-18-2024 End: 01-25-2025 take 1 tablet by mouth once daily Simvastatin 40 mg tablet Active 0 .ROUTE .COMPLEX January 25, 2025 4:36pm TAKE 1 TABLET BY MOUTH EVERY DAY Complies with drug therapy Start: 05-18-2024 End: 05-18-2024 take 1 tablet by mouth once daily Simvastatin 40 mg tablet Discontinued 40 MG PO Daily May 18, 2024 12:00am May 18, 2024 9:05am take 1 tablet by jayedn th once daily Simvastatin 40 MG TAKE 1 TABLET BY MOUTH EVERY DAY for 90 Active Sod Picosulf-Mag Ox-Citric A c (1 source) Start: 01-08-2025 take 1 mL by mouth once daily Completed/Discontinued Medications Medication Drug Class(es) Dates Sig (Normalized) Sig (Original) cetirizine hydrochloride 10 mg oral tablet (11 sources) Histamine-1 Receptor Antagonist Start: 12-10-2024 End: 12-11-2024 take 1 tablet by mouth once daily Cetirizine (Zyrtec) 10 mg tablet Discontinued 10 MG PO Daily December 10, 2024 12:00am December 11, 2024 2:35pm [employer] tablet Orally Once a day; Note: Source Status: Takinggeneric please; Refills: 3; Provider: Julio Calixto Start: 04-03-2024 End: 04-09-2024 take 1 tablet by mouth once daily Cetirizine 10 mg tablet Discontinued 10 MG PO Daily April 06, 2024 8:41am April 09, 2024 9:45am Start: 02-22-2023 take 1 tablet by jayden th every twenty-four hours ZyrTEC Allergy 10 MG 1 tablet Orally Once a day for 30 days generic please Feb, Active loratadine 10 mg oral tablet (6 sources) Start: 04-10-2024 End: 12-11-2024 take 1 [...] Classification Problem Date Documented Date Episodic/Chronic Asthma (6 sources) Uncomplicated asthma; Translations: [Unspecified asthma, uncomplicated] Onset: 09-01-2015 Chronic Disorders of lipid metabolism (12 sources) Hyperlipidemia; Translations: [Hyperlipidemia, unspecified] 12-11-2024 Chronic Essential hypertension (8 sources) Essential hypertension; Translations: [Essential (primary) hypertension] [...] conditions (not mental disorders or infectious disease) (11 sources) Encounter for screening mammogram for malignant [...] Name Value Interpretation Reference Range Facil ity Pathology Request for Lab Co rpon 02-05-2025 Pathology Request for Lab Tim Normal [facility] Comment on above: Order Comment: GI SP ECIMEN Result Comment: See report. Scanned copy available in EMR. PERFORMED BY: [place] [address] PATHOLOGIST TAX AGENT MARIS BARRERA M.D. Performed By: #### P ATH TO [facility] #### [address] Basophils Auto (Bld) [#/Vol] on 01-21-2025 Basophils (Bld) [#/Vol] 0.0 10 3/uL 0.0-0.1 [facility] Basophils/100 WBC Auto (Bld) on 01-21-2025 Basophils/100 WBC (Bld) 0.7 % 0.2-2.0 [facility] Cholesterol in LDL Calc [Mas s/Vol]on 01-21-2025 Cholesterol in LDL [Mass/Vol] 96.6 mg/dL [facility] Comment on above: <100 mg/dl [id number] 0-129 mg/dl NEAR OR ABOVE [id number] mg/dl BORDERLINE [id number] mg/dl HIGH>190 mg/dl VERY HIGH Cholesterol in VLDL Calc [Ma ss/Vol]on 01-21-2025 Cholesterol in VLDL [Mass/Vol] 13.4 mg/dL [facility] Eosinophils/100 WBC Auto (Bl d)on 01-21-2025 Eosinophils/100 WBC (Bld) 3.4 % 0.9-7.0 [facility] Erythrocyte distribution wid th Auto (RBC) [Ratio]on 01-21-2025 Erythrocyte distribution width (RBC) [Ratio] 12.9 % 11.0-15.0 [facility] Estimated glomerular filtrat ion rate (GFR) non- Americanon 01-21-2025 GFR/1.73 sq M.predicted among non-blacks MDRD (S/P/Bld) [Vol rate/Area] mL/min/{1.73_m2} >=60 mL/min/1.73m 2 [facility] Globulin Calc (S) [Mass/Vol] on 01-21-2025 Globulin (S) [Mass/Vol] 3.6 g/dL [facility] Hematocrit Auto (Bld) [Volum e fraction]on 01-21-2025 Hematocrit (Bld) [Volume fraction] 39.0 % 36.0-48.0 [facility] Hemoglobin [Mass/volume] in Bloodon 01-21-2025 Hemoglobin (Bld) [Mass/Vol] 12.8 g/dL 12.0-16.0 [facility] Laboratory - Chemistry and C hemistry - challengeon 01-21-2025 Albumin [Mass/Vol] 3.2 g/dL Low 3.4-5.0 [facility] ALP [Catalytic activity/Vol] 59 U/L 46-116 [facility] ALT [Catalytic activity/Vol] 27 U/L 14-59 [facility] AST [Catalytic activity/Vol] 21 U/L 15-37 [facility] Bilirubin [Mass/Vol] 0.5 mg/dL 0.2-1.0 [facility] Calcium [Mass/Vol] 9.3 mg/dL 8.5-10.1 [facility] Chloride [Moles/Vol] 105 mmol/L 98-107 [facility] Cholesterol [Mass/Vol] 164 mg/dL <=200 [facility] Cholesterol in HDL [Mass/Vol] 54 mg/dL 40-60 [facility] Comment on above: > or =60 mg/dl - LOW CARDIOVASCULAR RISK<40 mg/dl - HIGH CARDIOVASCULAR RISK CO2 [Moles/Vol] 33.4 mmol/L High 21.0-32.0 [facility] Creatinine [Mass/Vol] 0.79 mg/dL 0.55-1.02 [facility] GFR/1.73 sq M.predicted MDRD (S/P/Bld) [Vol rate/Area] mL/min/{1.73_m2} >=60 mL/min/1.73m 2 [facility] Glucose [Mass/Vol] 89 mg/dL 74-106 [facility] Potassium [Moles/Vol] 3.9 mmol/L 3.5-5.1 [facility] Protein [Mass/Vol] 6.8 g/dL 6.4-8.2 [facility] Sodium [Moles/Vol] 142 mmol/L 136-145 [facility] Triglyceride [Mass/Vol] 67 mg/dL <=150 [facility] Urea nitrogen [Mass/Vol] 18.0 mg/dL 7.0-18.0 [facility] Urea nitrogen/Creatinine [Mass ratio] 22.8 mg/mg [facility] Laboratory - Hematology and Cell countson 01-21-2025 Immature granulocytes/100 WBC (Bld) 0.2 % 0.0-0.5 [facility] Leukocytes [#/volume] correc anson for nucleated erythrocytes in Blood by Automated counon 01-21-2025 WBC corrected for nucl RBC Auto (Bld) [#/Vol] 6.0 10 3/uL 4.0-11.0 [facility] Lymphocytes Auto (Bld) [#/Vo l]on 01-21-2025 Lymphocytes (Bld) [#/Vol] 1.5 10 3/uL 1.2-3.8 [facility] Lymphocytes/100 WBC Auto (Bl d)on 01-21-2025 Lymphocytes/100 WBC (Bld) 24.5 % 20.5-60.0 [facility] MCH Auto (RBC) [Entitic mass ]on 01-21-2025 MCH (RBC) [Entitic mass] 30.0 pg 26.7-34.0 [facility] MCHC Auto (RBC) [Mass/Vol]on 01-21-2025 MCHC (RBC) [Mass/Vol] 32.8 g/dL 29.9-35.2 [facility] MCV Auto (RBC) [Entitic vol] on 01-21-2025 MCV (RBC) [Entitic vol] 91.5 fL 81.0-99.0 [facility] Monocytes Auto (Bld) [#/Vol] on 01-21-2025 Monocytes (Bld) [#/Vol] 0.7 10 3/uL 0.3-0.8 [facility] Monocytes/100 WBC Auto (Bld) on 01-21-2025 Monocytes/100 WBC (Bld) 11.2 % 1.7-12.0 [facility] Neutrophils Auto (Bld) [#/Vo l]on 01-21-2025 Neutrophils (Bld) [#/Vol] 3.6 10 3/uL 1.4-6.5 [facility] Neutrophils/100 WBC Auto (Bl d)on 01-21-2025 Neutrophils/100 WBC (Bld) 60.0 % 43.0-75.0 [facility] No Panel Informationon 01-21 Eosinophils # (Auto) 0.2 10 3/uL 0.0-0.7 [facility] Immature Granulocyte # (Auto) 0.01 10 3/uL 0.00-0.03 [facility] Platelet mean volume Auto (B ld) [Entitic vol]on 01-21-2025 Platelet mean volume (Bld) [Entitic vol] 9.8 fL 9.5-13.5 [facility] Platelets Auto (Bld) [#/Vol] on 01-21-2025 Platelets (Bld) [#/Vol] 286 10 3/uL 150-450 [facility] RBC Auto (Bld) [#/Vol]on RBC (Bld) [#/Vol] 4.26 10 6/uL 4.20-5.40 [facility] Serum or plasma albumin/glob ulin mass ratioon 01-21-2025 Albumin/Globulin [Mass ratio] 0.9 {ratio} [facility] Serum or plasma anion gap de terminationon 01-21-2025 Anion gap [Moles/Vol] 7.5 mmol/L [facility] Serum or plasma total choles terol/high density lipoprotein (HDL) cholesterol mass rosemarie 01-21-2025 Cholesterol.total/Cho lesterol in HDL [Mass ratio] 3.0 {ratio} [facility] Comment on above: 3.3 - 4.4 LOW RISK4. 4 - 7.1 AVERAGE RISK7.1 - 11.0 MODERATE RISK>11.0 HIGH RISK CBC AUTO DIFFon 12-24-2022 BASO # 0.1 103/ul Normal 0.0-0.1 [facility] Comment on above: Performed By: #### C BC #### [facility] [address] [place] [address] Dr. Angela Ford Basophils/100 WBC (Bld) 0.6 % Normal 0.2-2.0 [facility] Comment on above: Performed By: #### C BC #### [facility] [address] [place] [address] Dr. Angela Ford EO # 0.2 103/ul Normal 0.0-0.7 [facility] Comment on above: Performed By: #### C BC #### [facility] [address] [place] [address] Dr. Angela Ford Eosinophils/100 WBC (Bld) 2.9 % Normal 0.9-7.0 [facility] Comment on above: Performed By: #### C BC #### [facility] [address] [place] [address] Dr. Angela Ford Erythrocyte distribution width (RBC) [Ratio] 12.7 % Normal 11.0-15.0 [facility] Comment on above: Performed By: #### C BC #### [facility] [address] [place] [address] Dr. Angela Ford Hematocrit (Bld) [Volume fraction] 41.0 % Normal 36.0-48.0 [facility] Comment on above: Performed By: #### C BC #### [facility] [address] [place] [address] Dr. Angela Ford Hemoglobin (Bld) [Mass/Vol] 13.1 g/dL Normal 12.0-16.0 [facility] Comment on above: Performed By: #### C BC #### [facility] [address] [place] [address] Dr. Angela Ford IG # 0.02 10e3/ul Normal 0.00-0.03 [facility] Comment on above: Performed By: #### C BC #### [facility] [address] [place] [address] Dr. Angela Ford IG % 0.2 % Normal 0.0-0.5 [facility] Comment on above: Performed By: #### C BC #### [facility] [address] [place] [address] Dr. Angela Ford LYMPH # 2.1 103/ul Normal 1.2-3.8 [facility] Comment on above: Performed By: #### C BC #### [facility] [address] [place] [address] Dr. Angela Ford Lymphocytes/100 WBC (Bld) 25.3 % Normal 20.5-60.0 [facility] Comment on above: Performed By: #### C BC #### [facility] [address] [place] [address] Dr. Angela Ford MANUAL DIFF REQ NO Normal [facility] Comment on above: Performed By: #### C BC #### [facility] [address] [place] [address] Dr. Angela Ford MCH (RBC) [Entitic mass] 29.1 pg Normal 26.7-34.0 [facility] Comment on above: Performed By: #### C BC #### [facility] [address] [place] [address] Dr. Angela Ford MCHC (RBC) [Mass/Vol] 32.0 g/dL Normal 29.9-35.2 [facility] Comment on above: Performed By: #### C BC #### [facility] [address] [place] [address] Dr. Angela Ford MCV (RBC) [Entitic vol] 91.1 fL Normal 81.0-99.0 [facility] Comment on above: Performed By: #### C BC #### [facility] [address] [place] [address] Dr. Angela Ford MONO # 0.7 103/ul Normal 0.3-0.8 [facility] Comment on above: Performed By: #### C BC #### [facility] [address] [place] [address] Dr. Angela Ford Monocytes/100 WBC (Bld) 8.0 % Normal 1.7-12.0 [facility] Comment on above: Performed By: #### C BC #### [facility] [address] [place] [address] Dr. Angela Ford NEUT # 5.2 103/ul Normal 1.4-6.5 [facility] Comment on above: Performed By: #### C BC #### [facility] [address] [place] [address] Dr. Angela Ford Neutrophils/100 WBC (Bld) 63.0 % Normal 43.0-75.0 [facility] Comment on above: Performed By: #### C BC #### [facility] [address] [place] [address] Dr. Angela Ford Platelet mean volume (Bld) [Entitic vol] 9.6 fL Normal 9.5-13.5 [facility] Comment on above: Performed By: #### C BC #### [facility] [address] [place] [address] Dr. Angela Ford PLT 282 103/ul Normal 150-450 [facility] Comment on above: Performed By: #### C BC #### [facility] [address] [place] [address] Dr. Angela Ford RBC 4.50 106/ul Normal 4.20-5.40 [facility] Comment on above: Performed By: #### C BC #### [facility] [address] [place] [address] Dr. Angela Ford WBC 8.3 103/ul Normal 4.0-11.0 [facility] Comment on above: Performed By: #### C BC #### [facility] [address] [place] [address] Dr. Angela Ford GLYCOHEMOGLOBIN A1Con 2022 ADA RECOMMENDATION SEE BELOW Normal [facility] Comment on above: Result Comment: ADA RECOMMENDED LIMIT 4.0 - 6.0 ADA THERAPEUTIC TARGET < 7.0 ACTION SUGGESTED > 7.0 Performed By: #### A 1C #### [facility] [address] [place] [address] Dr. Angela Ford Glucose [Mass/Vol] 114 mg/dL Normal [facility] Comment on above: Performed By: #### A 1C #### [facility] [address] [place] [address] Dr. Angela Ford HbA1c (Bld) [Mass fraction] 5.6 % Normal 4.5-6.2 [facility] Comment on above: Performed By: #### A 1C #### [facility] [address] [place] [address] Dr. Angela Ford LIPID PROFILEon 12-24-2022 CHOL-HDL RATIO NORM SEE BELOW Normal [facility] Comment on above: Result Comment: 3.3 - 4.4 LOW RISK 4.4 - 7.1 AVERAGE RISK 7.1 - 11.0 MODERATE RISK >11.0 HIGH RISK Performed By: #### C MP, LIPID, TSH #### [facility] [address] [address] [address] Angela Ford Cholesterol [Mass/Vol] 171 mg/dL Normal <=200 [facility] Comment on above: Performed By: #### C MP, LIPID, TSH #### [facility] [address] [address] [address] Angela Ford Cholesterol in HDL [Mass/Vol] 56 mg/dL Normal 40-60 [facility] Comment on above: Performed By: #### C MP, LIPID, TSH #### [facility] [address] [address] [address] Angela Ford Cholesterol in LDL [Mass/Vol] 99.4 mg/dL Normal [facility] Comment on above: Performed By: #### C MP, LIPID, TSH #### [facility] [address] [address] [address] Angela Ford Cholesterol.total/Cho lesterol in HDL [Mass ratio] 3.1 {ratio} Normal [facility] Comment on above: Performed By: #### C MP, LIPID, TSH #### [facility] [address] [address] [address] Angela Ford HDL NORMAL > or = 60 mg/dl - LOW CARDIOVASCULAR RISK <40 mg/dl - HIGH CARDIOVASCULAR RISK Normal [facility] Comment on above: Performed By: #### C MP, LIPID, TSH #### [facility] [address] [address] [address] Angela Ford LDL CALC NORMAL SEE BELOW Normal [facility] Comment on above: Result Comment: <100 mg/dl OPTIMAL 100 - 129 mg/dl NEAR OR ABOVE OPTIMAL 130 - 159 mg/dl BORDERLINE HIGH 160 - 189 mg/dl HIGH >190 mg/dl VERY HIGH Performed By: #### C MP, LIPID, TSH #### [facility] [address] [address] [address] Angela Ford Triglyceride [Mass/Vol] 78 mg/dL Normal <=150 [facility] Comment on above: Performed By: #### C MP, LIPID, TSH #### [facility] [address] [address] [address] Angela Ford VLDL CALC 15.6 mg/dL Normal [facility] Comment on above: Performed By: #### C MP, LIPID, TSH #### [facility] [address] [address] [address] Angela Ford PROF 14(COMP METB)on 023 Albumin [Mass/Vol] 3.6 g/dL Normal 3.4-5.0 [facility] Comment on above: Performed By: #### C MP, LIPID, TSH #### [facility] [address] [address] [address] Angela Ford Albumin/Globulin [Mass ratio] 0.9 {ratio} Normal [facility] Comment on above: Performed By: #### C MP, LIPID, TSH #### [facility] [address] [place] [address] Dr. Angela Ford ALP [Catalytic activity/Vol] 65 U/L Normal 46-116 [facility] Comment on above: Performed By: #### C MP, LIPID, TSH #### [facility] [address] [place] [address] Dr. Angela Ford ALT [Catalytic activity/Vol] 34 U/L Normal 14-59 [facility] Comment on above: Performed By: #### C MP, LIPID, TSH #### [facility] [address] [address] [address] Angela Ford Anion gap [Moles/Vol] 11.3 mmol/L Normal [facility] Comment on above: Performed By: #### C MP, LIPID, TSH #### [facility] [address] [place] [address] Dr. Angela Ford AST [Catalytic activity/Vol] 25 U/L Normal 15-37 [facility] Comment on above: Performed By: #### C MP, LIPID, TSH #### [facility] [address] [place] [address] Dr. Angela Ford Bilirubin [Mass/Vol] 0.5 mg/dL Normal 0.2-1.0 [facility] Comment on above: Performed By: #### C MP, LIPID, TSH #### [facility] [address] [address] [address] Angela Ford Calcium [Mass/Vol] 9.5 mg/dL Normal 8.5-10.1 [facility] Comment on above: Performed By: #### C MP, LIPID, TSH #### [facility] [address] [address] [address] Angela Ford Chloride [Moles/Vol] 103 mmol/L Normal 98-107 [facility] Comment on above: Performed By: #### C MP, LIPID, TSH #### [facility] [address] [address] [address] Angela Ford CO2 [Moles/Vol] 31.7 mmol/L Normal 21.0-32.0 [facility] Comment on above: Performed By: #### C MP, LIPID, TSH #### [facility] [address] [place] [address] Dr. Angela Ford Creatinine [Mass/Vol] 0.80 mg/dL Normal 0.55-1.02 [facility] Comment on above: Performed By: #### C MP, LIPID, TSH #### [facility] [address] [address] [address] Angela Ford EGFR-AF TUVALUAN >60 Normal >=60 [facility] Comment on above: Performed By: #### C MP, LIPID, TSH #### [facility] [address] [place] [address] Dr. Angela Ford EGFR-NON AF TUVALUAN >60 Normal >=60 [facility] Comment on above: Performed By: #### C MP, LIPID, TSH #### [facility] [address] [address] [address] Angela Ford Globulin (S) [Mass/Vol] 3.8 g/dL Normal [facility] Comment on above: Performed By: #### C MP, LIPID, TSH #### [facility] [address] [address] [address] Anglea Ford Glucose [Mass/Vol] 84 mg/dL Normal 74-106 [facility] Comment on above: Performed By: #### C MP, LIPID, TSH #### [facility] [address] [address] [address] Angela Ford Potassium [Moles/Vol] 4.0 mmol/L Normal 3.5-5.1 [facility] Comment on above: Performed By: #### C MP, LIPID, TSH #### [facility] [address] [address] [address] Angela Ford Protein [Mass/Vol] 7.4 g/dL Normal 6.4-8.2 [facility] Comment on above: Performed By: #### C MP, LIPID, TSH #### [facility] [address] [address] [address] Angela Ford Sodium [Moles/Vol] 142 mmol/L Normal 136-145 [facility] Comment on above: Performed By: #### C MP, LIPID, TSH #### [facility] [address] [place] [address] Dr. Angela Ford Urea nitrogen [Mass/Vol] 13.0 mg/dL Normal 7.0-18.0 [facility] Comment on above: Performed By: #### C MP, LIPID, TSH #### [facility] [address] [address] [address] Angela Ford Urea nitrogen/Creatinine [Mass ratio] 16.2 mg/mg Normal [facility] Comment on above: Performed By: #### C MP, LIPID, TSH #### [facility] [address] [place] [address] Dr. Angela Ford TSHon 12-24-2022 TSH 1.269 uIU/mL Normal 0.358-3.740 [facility] Comment on above: Performed By: #### C MP, LIPID, TSH #### [facility] [address] [place] [address] Dr. Angela Ford MG MAMM SCREEN 3D STACIA CADon 09-13-2022 MG MAMM SCREEN 3D STACIA CAD Patient: ANITHA PEREA Exam Date: 09/13/2022 : 1955 Gender:F Ordering : DR BREONNA STEINER M.D. Admission #: [id number] Family : Order #: [id number] CLICK HERE TO VIEW EXAM RADIOLOGY REPORT [...] with bladder cancer at age 48. LOCATION: [facility] BREAST COMPOSITION: Scattered areas fibroglandular [...] on 09/13/2022 at 14:04 Approved by: Lolly Pace MD on 09/13/2022 at 14:11 Normal [facility] Vital Signs Date Time Vital Sign Value Performing Clinician Facility 02-05-2025 09:18-0400 Diastolic blood pressure 63 mm[Hg] Breonna Steiner MD Work Phone: [facility] 02-05-2025 09:18-0400 Heart rate 65 /min Breonna Steiner MD Work Phone: [facility] 02-05-2025 09:18-0400 Respiratory rate 16 /min Breonna Steiner MD Work Phone: [facility] 02-05-2025 09:18-0400 SaO2% (BldA) [Mass fraction] 97 % Breonna Steiner MD Work Phone: [facility] 02-05-2025 09:18-0400 Systolic blood pressure 116 mm[Hg] Breonna Steiner MD Work Phone: [facility] 02-05-2025 06:50-0400 Body height 172.72 cm Breonna Steiner MD Work Phone: [facility] 02-05-2025 06:50-0400 Body weight 99.79 kg Breonna Steiner MD Work Phone: [facility] 12-11-2024 14:14-0400 Body height 172.72 cm [facility] 12-11-2024 14:14-0400 Body mass index (BMI) [Ratio] 34.4 kg/m2 [facility] 12-11-2024 14:14-0400 Body weight 102.73 kg [facility] 12-11-2024 14:14-0400 Diastolic blood pressure 70 mm[Hg] [facility] 12-11-2024 14:14-0400 Heart rate 90 /min [facility] 12-11-2024 14:14-0400 Systolic blood pressure 138 mm[Hg] [facility] 08-28-2023 09:00-0500 Body height 172.72 cm Breonna Steiner Other [facility] Other 08-28-2023 09:00-0500 Body mass index (BMI) [Ratio] 33.51 kg/m2 Breonna Steiner Other [facility] Other 08-28-2023 09:00-0500 Body temperature 97.3 [degF] Breonna Steiner Other [facility] Other 08-28-2023 09:00-0500 Body weight 99.97 kg Breonna Steiner Other [facility] Other 08-28-2023 09:00-0500 Diastolic blood pressure 79 mm[Hg] Breonna Steiner Other [facility] Other 08-28-2023 09:00-0500 Systolic blood pressure 122 mm[Hg] Breonna Steiner Other [facility] Other 02-21-2023 13:45-0400 Body height 172.72 cm Breonna Steiner Other [facility] Other 02-21-2023 13:45-0400 Body mass index (BMI) [Ratio] 33.75 kg/m2 Breonna Steiner Other [facility] Other 02-21-2023 13:45-0400 Body weight 100.7 kg Breonna Steiner Other [facility] Other 02-21-2023 13:45-0400 Diastolic blood pressure 82 mm[Hg] Breonna Steiner Other [facility] Other 02-21-2023 13:45-0400 Systolic blood pressure 146 mm[Hg] Breonna Steiner Other [facility] Other Encounters Encounter Date Encounter Type Care Provider Facility Start: 02-05-2025 End: 02-05-2025 ambulatory Jagjit Arceo Facility:[facility] Start: 02-05-2025 Non-patient / Non-visit Jagjit Suresh MD -[facility] Work Phone: Start: 01-21-2025 Non-patient / Non-visit Breonna doherty MD -[facility] Work Phone: Start: 12-11-2024 End: 12-11-2024 ambulatory [facility] Work Phone: Start: 12-11-2024 End: 12-11-2024 Patient encounter procedure [facility] Work Phone: Start: 12-11-2024 End: 12-11-2024 Patient encounter status Breonna Steiner MD [facility] Start: 12-31-2023 Patient encounter status [facility] Start: 08-28-2023 End: 08-28-2023 ambulatory Breonna Steiner Other [facility] Other Start: 08-28-2023 Office outpatient vi sit 15 minutes Breonnasheila Steiner [facility] Start: 06-03-2023 End: 06-03-2023 ambulatory Breonna Julio Other [facility] Other Start: 06-03-2023 Telephone encounter Breonna Steiner [facility] Start: 02-21-2023 End: 02-21-2023 ambulatory Breonna Julio Other [facility] Other Start: 02-21-2023 Encounter for genera l adult medical examination without abnormal findings Breonnasheila Steiner [facility] Start: 02-21-2023 Periodic preventive med est patient 65yrs& older Breonnasheila Steiner [facility] Start: 12-24-2022 End: 12-25-[address] BREONNA STEINER Facility:[facility] Start: 09-13-2022 End: 09-14-[address] BREONNA STEINER Facility:[facility] Start: 11-01-2021 Adult health examination Breonna Julio Other [facility] Other Procedures Date Procedure Procedure Detail Performing Clinician Start: 09-01-2015 General examination of patient Breonna Steiner Other Start: 09-01-2015 Screening mammography Raiza Steiner Other Screening for malign ant neoplasm of breast Breonna Julio Other Plan of Treatment Date Care Activity Detail Author Start: 02-05-2025 [facility] Comprehensive metabo lic 2000 panel - Serum or Plasma [facility] MG Breast - bilatera l Screening [facility] Patient Education Colon polyps [place] Hemorrhoids Discharge Instructions Know your Meds [facility] Work Phone: [facility] Immunizations Immunization Date Immunization Notes Care Provider Fa cility 05-16-2022 COVID-19 Vaccine Moderna - Documentation Purposes Only Breonnasheila Steiner Other [facility] 05-16-2022 influenza virus vaccine, split virus (incl. purified surface antigen) Breonna Julio Other [facility] Other 05-16-2022 influenza virus vaccine, unspecified formulation [facility] 06-15-2021 COVID-19 Vaccine Moderna - Documentation Purposes Only Breonna Steiner Other [facility] 05-08-2021 influenza virus vaccine, split virus (incl. purified surface antigen) Breonna Steiner Other [facility] Other 05-08-2021 influenza virus vaccine, unspecified formulation [facility] 10-26-2020 COVID-19 Vaccine Moderna - Documentation Purposes Only Breonna Steiner Other [facility] 09-28-2020 COVID-19 Vaccine Moderna - Documentation Purposes Only Breonna Steiner Other [facility] 05-30-2020 pneumococcal polysaccharide vaccine, 23 valent Breonna Steiner Other [facility] 05-09-2020 influenza virus vaccine, split virus (incl. purified surface antigen) Breonna Steiner Other [facility] Other 05-09-2020 influenza virus vaccine, unspecified formulation [facility] 05-19-2019 pneumococcal conjuga te vaccine, 13 valent Breonna Steiner Other [facility] Payers Date Payer Category Payer Self-pay 1959 Unknown [id number] 1955 Unknown [id number] 1955 Unknown [id number] Unknown [id number] Social History Date Type Detail Facility Unknown if ever smoked [facility] Other Sex Assigned At Sex Assigned At Bir th 1st [employer] [facility] [employer] Other Tobacco smoking status NHIS Unknown if ever smoked [facility] Work Phone: Start: 12-11-2024 Sex Female (finding) [facility] Start: 1955 Sex Assigned At Female F [facility] Start: 02-05-2025 Tobacco smoking status NHIS Ex-smoker (finding) [facility] Evaluation note 12-11-2024 Note Date & Type Note Facility 12-11-2024 Evaluation note Diagnosis Onset Date Resolution Asthma acute December 11, 2024 1:56pm Colon cancer screening acute Ma y 2024 1:56pm HTN (hypertension) acute December 1:56pm Hyperlipemia acute December 11 1:56pm Screening mammogram for breast cancer acute December 11, 2024 1: 56pm Wellness examination acute December 11, 2024 1:56pm [facility] Work Phone: Evaluation note 08-28-2023 Note Date & Type [...] directed and we will continue to monitor. [facility] Other Evaluation note 02-21-2023 Note Date & [...] - R06.83) order completed for HST at [place]. Feb, Seasonal allergic rhinitis due to pollen (ICD-10 - J30.1) Pt states zyrtec works well and requests a rx to see if insurance covers. [facility] Other Evaluation note Note Date & Type Note Facility Evaluation note No Information [employer] Other Evaluation note Note Date & Type Note Facility Evaluation note Diagnosis Onset Date Resolution Colon cancer screening acute Ma 2024 1:56pm Hyperlipemia acute December 11 1:56pm [facility] Work Phone: History general Narrative - Reported Note Date & Type Note Facility History general Narrative - Reported Type Medical History Essential (primary) hypertension Medical History Pure hypercholesterolemia Medical History Insomnia Medical History Major depression Medical History Hyperlipemia [facility] Other History general Narrative - Reported Note [...] no changes required, Problem Status : Resolved, [facility] Other Hospital Discharge instructions Note Date & Type Note Facility Hospital Discharge instructions Additional Instructions DISCHARGE INSTRUCTIONS FOR COLONOSCOPY WHAT TO EXPECT: - You may feel full, gassy or cramping after your procedure. In some cases, this may be from a few hours to a day. Walking may help relieve the discomfort. - If you have polyp(s) removed you may note some minor bloody discharge after your first bowel movements. - You should begin to recover from anesthesia within 1 hour of the procedure, however may feel groggy for the next 24 hours. DO's AND DON'Ts: - Call your doctor right away if you have a hard abdomen, severe pain, are passing lots of bright red blood or clots. - Call your doctor if you develop any rashes, hives or difficulty breathing. - Let your doctor know if you have not had a bowel movement by 3 days after your procedure. - If you take 81 mg aspirin for your heart it is safe to resume this medication. - If you take other blood thinner medications your doctor will instruct you when these can safely be resumed. - Do NOT drive for 24 hours. - Do NOT operate machinery such as power tools, [employer] mowers, snow blowers, sewing machines, etc. for 24 hours. - Avoid alcoholic beverages and drugs for allergies, nerves, or sleep. - Do NOT stay alone. Do NOT leave your child unattended. - Do NOT make important personal or business decisions or sign any legal documents. - Eat solid foods and drink liquids in smaller amounts than usual until normal appetite returns. If you should experience an upset stomach, liquids high in sugar content (soda, Jose Alejandro-Aid, non-acid juices) are recommended. - You can resume normal activities tomorrow. FOLLOW UP & RECOMMENDATIONS: - You should have a repeat colonoscopy in 1 years because you had several polyps removed today. - Notify the doctor if you have any problems. - Follow-up with the office as needed. - Follow up with PCP. - Office number [phone]. [facility] Work Phone: Reason for referral (narrative) Note Date & Type Note Facility Reason for referral (narrative) No reason for referral information available [facility] Work Phone: Summary Purpose Family History No Family History Records Found Relationship Condition Age at Onset Recorded Date/T bladimir father Unknown Malignant neoplasm Unknown mother Unknown Heart disease Unknown Advance Directives No Advanced Directives Records Found Advance Directive Response Recorded Date/ Time Advance Directives No December 11, 2024 1:54pm Chief Complaint and Reason for Visit Chief Complaint Admit Date Wellness visit December 11, 2024 1:56pm Reason for Visit Admit Date Colon cancer screening December 11, 2024 1:5 6pm Hyperlipemia December 11, 2024 1:56pm Chief Complaint Admit Date Wellness visit December 11, 2024 1:56pm positive cologuard February 05, 2025 6:35 am Reason for Visit Admit Date Asthma December 11, 2024 1:56pm Colon cancer screening December 11, 2024 1:5 6pm HTN (hypertension) December 11, 2024 1:56pm Hyperlipemia December 11, 2024 1:56pm Screening mammogram for breast cancer Lizy hernandez 2024 1:56pm Wellness examination December 11, 2024 1:56p m Additional Source Comments INFORMATION SOURCE (unrecogn ized section and content) DATE CREATED AUTHOR 12/25/2022 [facility] DATE CREATED AUTHOR AUTHOR'S ORGANIZ ATION 02/17/2025 [facility] REASON FOR VISIT (unrecogniz ed section and content) check uperrorcough x 2 weeks Care Teams (unrecognized sec tion and content) Team Status: Active Member Role Status Dates Breonna Steiner MD Primary Care Provider Active Team Status: Inactive Member Role Status Dates Breonna Steiner MD Primary Care Provide r, Attending Provider Active Start: December 11, 2024 End: December 11, 2024 Team Status: Inactive Member Role Status Dates Breonna Steiner MD Primary Care Provider Active Start: December 11, 2024 End: December 11, 2024 Breonna Steiner MD Attending Provider Active St art: December 11, 2024 End: December 11, 2024 Team Status: Active Member Role Status Dates Breonna Steiner MD Primary Care Provider Active Start: January 21, 2025 Breonna Steiner MD Attending Provider Active St art: January 21, 2025 Team Status: Active Member Role Status Dates Breonna Steiner MD Primary Care Provider Active Start: February 05, 2025 Jagjit Arceo MD Attending Provider Active S tart: February 05, 2025 Jagjit Arceo MD Other Provider Active Start : February 05, 2025 Goals (unrecognized section and content) Goals may [...] BE BASED ON THE PRIMARY CLINICAL RECORDS. [facility] [employer] [facility]. provides no warranty or guarantee of the accuracy or completeness of information in this document.
--- OUTSIDE RECORDS SUMMARY | 2025-05-26 10:30 | XMS_ITS | Clinical Summary ---
Author Organization [place] [facility] tem Address [id number] [address] [place] [address] Care Team Providers Care Plastic Molding Operator Name Role Phone Breonna Steiner MD Primary Care Provider [phone] Family History Medical History Relation Name Comments Breast cancer Neg Hx Social History Tobacco Use Types Packs/Day Years Used Date Smoking Tobacco: Never Assessed Childcare Answer Date Recorded Childcare Unknown 01/19/2019 Employment Answer Date Recorded Employment Unknown 01/19/2019 Purpose - Life Answer Date Recorded Purpose and direction in life Unknown Comments Unknown Sex and Gender Information Value Date Recorded Sex Assigned at Not on file Legal Sex Female 11:40 AM EDT Gender Identity Not on file Sexual Orientation Not on file Plan of Treatment Health Maintenance Due Date Last Done Comments Depression Screening 1967 Tobacco Screening 1967 Adult BMI Screening 1973 DTaP,Tdap and Td Vaccines (1 - Tdap) 1974 Zoster (Shingles) Vaccine (1 of 2) 2005 Fall Risk Screening 2020 Influenza Vaccine 04/12/2025 Medical Devices Not on file Insurance AN[employer] Care Teams Plastic Molding Operator Relationship Specialty Start Date End Date Breonna Steiner MD [address] [id number] PCP - General Family Medicine 01/22/19
--- NOTE | 2025-05-26 10:32 | XR_ITS ---
The [place] [id number] Patient Name: JOSTIN PEREA MRN: [id number] date: 1955 Sex: F Assigned Patient Location: [facility] Current Patient Location: [facility] Accession/Order Number: [id number] Exam Date: 05/26/2025 10:36 Report Date: 05/26/2025 11:17 At the request of: LIYAH KIM MD Procedure: XR knee RT 4V RIGHT KNEE - 4 views COMPARISON: None CLINICAL DATA: Increasing medial right knee pain for past 3 months following twisting injury. AP, lateral and both oblique views were obtained. There is no acute or healing fracture. No dislocation is noted. The joint spaces are maintained. There is minor marginal spurring at the posterior patella. There is also a small enthesophyte at the insertion of the quadriceps tendon. There is no significant knee effusion or soft tissue swelling. XR/XR knee RT 4V IMPRESSION: NO ACUTE BONY FINDINGS. Impression dictated by: Lilly Billings M.D. 05/26/2025 11:17 AM Dictation Location: [place] [address] Electronically authenticated by: [id number] Date: 05/26/2025 11:17
== END 2025-05-26 10:26 | disposition home or self-care (01) ==
PROVIDERS: PCP Family Medicine; Visit Provider Family Medicine
DX: M25.561 Pain in right knee (principal); G89.29 Other chronic pain
CPT/HCPCS: 73564